=== PATIENT | male | born 1975 | race African-American/Black ===

== ENCOUNTER → 2017-07-02 | Outpatient (CLI) | payer BC ==
[~2017-07-02] MED LIST: HYDR-2762 PO; OXYC-327 PO
--- NOTE | 2017-07-02 16:34 | KCIC ---
MRI right hindfoot without contrast dated 07/02/2017. No comparison available. Clinical indication: Pain after injury while playing basketball yesterday. TECHNIQUE: Routine multiplanar multisequence MR imaging right hindfoot performed. No contrast administered. FINDINGS: Extensive edema at the Achilles musculotendinous junction with inflammatory changes along the Achilles peritenon. There is a full-thickness tear at the muscular tendinous junction with 2.3 cm proximal retraction. Increased signal and thickening of the distal Achilles to the level of the calcaneal tuberosity. Minimal increased signal within the central slip plantar fascia. No full-thickness plantar fascia tear. Flexor and extensor tendons are intact. Mild increased signal within the distal peroneus longus and peroneus brevis which are otherwise intact. Anterior talofibular ligament and posterior talofibular ligament are intact. Tibiofibular ligaments and calcaneal fibular ligament intact. No abnormality of the deltoid complex. There is a 7 mm osteochondral defect at the medial talar dome with mild patchy subchondral edema. No significant joint effusion or loose body. Marrow signal is otherwise homogeneous. There is edema throughout the dorsal subcutaneous tissues. IMPRESSION: 1. Full-thickness Achilles tendon tear at the musculotendinous junction with approximately 2.3 cm proximal retraction. 2. Mild plantar fasciitis. 3. Small osteochondral defect of the medial talar dome. Electronically signed by: Hi Jain MD (07/02/2017 4:31 PM) [id number]
== END | disposition home or self-care (01) ==
LOC: KCIC MRI 15:12
PROVIDERS: ATTEND Family Medicine
DX: S86.011A Strain of right Achilles tendon, initial encounter (principal); M72.2 Plantar fascial fibromatosis; M21.961 Unspecified acquired deformity of right lower leg; X58.XXXA Exposure to other specified factors, initial encounter; Y93.89 Activity, other specified; Y92.89 Other specified places as the place of occurrence of the external cause; Y99.8 Other external cause status
CPT/HCPCS: 73718

== ENCOUNTER → 2017-07-10 | Day surgery (SDC) | payer BC ==
[~2017-07-10] VITALS: Ht 180.3 cm; Wt 85.0 kg
[~2017-07-10] MED LIST changes: +DEXAMETHASONE SOD PHOS 20 MG/5 ML VIAL. ONE; +FAMOTIDINE 20 MG/2 ML VIAL ONE; +GLYCOPYRROLATE 1 MG/5 ML VIAL. ONE; +HYDROmorphone 2 MG/ML VIAL IV PRN; +IV RINGERS,LACTATED 1000ML 1,000 ML IV SCH; +KETOROLAC 30 MG/ML INJ FOR OR. INJ ONE; +LIDOCAINE 1% PF 2 ML VIAL. ID PRN; +LIDOCAINE 2% PF Vial for OR 5 ML VIAL. ONE; +MIDAZOLAM HCL/PF 2 MG/2 ML VIAL. ONE; +MORPHINE SULFATE 2 MG/ML DISP.SYRIN. IV PRN; +NEOSTIGMINE METHYLSULFATE 5 MG/5 ML SYRINGE. ONE; +ONDANSETRON PF 4 MG/2 ML VIAL. IV PRN; +ONDANSETRON PF 4 MG/2 ML VIAL. ONE; +PHENYLEPHRINE in 0.9% NACL PF 1 MG/10 ML SYRINGE. IV ONE; +PROCHLORPERAZINE 10 MG/2 ML VIAL. IV PRN; +PROPOFOL 20 ML IV ONE; +ROCURONIUM 50 MG/5 ML VIAL. ONE; +SEVOFLURANE 61 TO 120 MINUTES. IH ONE; +fentaNYL PF VIAL 100 MCG/2 ML VIAL IV PRN; +fentaNYL PF VIAL 100 MCG/2 ML VIAL ONE; +oxyCODONE/APAP 7.5/325 1 TAB TABLET PO PRN
--- NOTE | 2017-07-10 12:26 | DISCH ---
DISCHARGE INSTRUCTIONS Condition on Discharge Condition on Discharge: Stable Activity After Discharge Activity Instructions for Disc: Other, see below Other activity instructions: non weight bearing with splint and crutches Weight Bearing Status after Di: Non weight bearing Diet after Discharge Diet after Discharge: Regular Wound Incision Care Wound/Incision Care: Ice to area for comfort, Keep wound elevated, Do not change dressing Other wound/incision instructi: keep dressing and splint clean, dry Contacting the DR. after DC Call your doctor for: Concerns you may have Follow-Up Follow up with: Tania 2 weeks DELMI HUSAIN MD Jul 10, 2017 12:26
[2017-07-10] MEDS: fentaNYL PF VIAL 100 MCG/2 ML VIAL IV PRN ×2 (12:48→12:57)
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
[2017-07-10 14:09] VITALS: BP 104/63
== END | disposition home or self-care (01) ==
LOC: SURG 09:16
PROVIDERS: ATTEND Orthopaedic Surgery
DX: S86.011A Strain of right Achilles tendon, initial encounter (principal); X58.XXXA Exposure to other specified factors, initial encounter; Y93.89 Activity, other specified; Y92.89 Other specified places as the place of occurrence of the external cause; Y99.8 Other external cause status; Z87.39 Personal history of other diseases of the musculoskeletal system and connective tissue
CPT/HCPCS: 27650; J0690; J1100; J1885; J2250; J2370; J2405; J2704; J2710; J3010; J3490; J7120; S0028; J2001